=== PATIENT | male | born 1960 | race Two or more races ===

== ENCOUNTER 2024-05-12 09:34 | Inpatient (IN) | payer MEDICARE, MEDICAID ==
[~2024-05-12] VITALS: Ht 162.6 cm; Wt 61.4 kg
[2024-05-12] MEDS: SODIUM CHLORIDE 0.9% 1000ML BAG (SEPSIS BOLUS) IV NR (10:22)
[2024-05-12] MEDS: PIPERACILLIN/TAZO 3.375G/50ML 50 ML IV NR (10:22)
[2024-05-12] MEDS: VANCOMYCIN 1G PREMIX 200 ML IV NR (10:22)
[2024-05-12 10:23] LABS: HEMATOCRIT. 24.5 % (42.0-52.0); HEMOGLOBIN. 7.9 g/dL (14.0-18.0); MEAN CORPUSCULAR HEMOGLOBIN 31.5 pg (28.0-32.0); MEAN CORPUSCULAR HGB CONC 32.3 g/dL (31.0-37.0); MEAN CORPUSCULAR VOLUME 97.4 fL (80.0-94.0); MEAN PLATELET VOLUME 7.5 fl (7.4-10.4); PLATELET 161 x1000/uL (130-400); RED BLOOD CELL COUNT 2.51 mill/uL (4.7-6.1); WHITE BLOOD COUNT 2.6 x1000/uL (4.5-11.0)
[2024-05-12 10:30] LABS: POTASSIUM 3.5 mEq/L (3.5-5.1)
[2024-05-12 10:31] LABS: CALCIUM 8.2 mg/dL (8.7-10.4)
[2024-05-12 10:36] LABS: CREATININE 4.8 mg/dL (0.6-1.3)
[2024-05-12 10:38] LABS: LACTIC ACID 2.6 mmol/L (0.4-2.0)
[2024-05-12 10:43] LABS: INR 0.9; PROTHROMBIN TIME 10.1 sec (9.6-11.0)
[2024-05-12 10:48] LABS: DIFFERENTIAL COMMENT 1
[2024-05-12] MEDS ORDERED: DOCUSATE SODIUM 100MG CAPSULE PO PRN (15:30)
[2024-05-12] MEDS ORDERED: ONDANSETRON HCL 4MG/2ML INJ IV PRN (15:30)
[2024-05-12] MEDS ORDERED: ENOXAPARIN 40MG/0.4ML SYR SUBCUT SCH (15:30)
[2024-05-12] MEDS ORDERED: MAGNESIUM/ALUMINUM HYDROXIDE/SIMETHICONE 30ML UDC PO PRN (15:30)
[2024-05-12] MEDS ORDERED: NITROGLYCERIN 0.4MG TABLET SL SL PRN (15:30)
[2024-05-12] MEDS ORDERED: NOREPINEPHRINE 8 MG in DEXT 5% WATER 242 ML IV PRN (16:00)
[2024-05-12 16:04] LABS: ANISOCYTOSIS 3+; PLATELET ESTIMATE NORMAL
[2024-05-12] MEDS ORDERED: NOREPINEPHRINE 8MG/250ML PMX 250ML IV PRN (16:15)
[2024-05-12] MEDS: ENOXAPARIN 30MG/0.3ML SYR SUBCUT SCH (16:36)
[2024-05-12] MEDS: PANTOPRAZOLE SODIUM 40 MG/VIAL IV SCH (16:38)
[2024-05-12 17:11] LABS: IRON 21 ug/dL (65-175)
[2024-05-12 17:14] LABS: TOTAL IRON BINDING CAPACITY 281 ug/dl (250-425)
[2024-05-12 17:17] LABS: VITAMIN B12 SERUM 1074 pg/mL (211-911)
[2024-05-12 17:18] LABS: T4 FREE 0.89 ng/dL (0.89-1.76); THYROID STIMULATING HORMONE 1.03 uIU/mL (0.55-4.78)
[2024-05-12 17:24] LABS: FOLIC ACID (FOLATE) SERUM > 20.00 ng/mL (>5.38)
[2024-05-12] MEDS: MEROPENEM 500MG/50ML IV SCH (17:28)
[2024-05-12] MEDS: VANCOMYCIN 1.5GM/250ML IV NR (17:38)
[2024-05-12] MEDS: ASCORBIC ACID 500 MG TABLET PO SCH (21:00)
[2024-05-12] MEDS: ACETAMINOPHEN 325MG TABLET PO PRN (21:15)
[2024-05-12 21:35] VITALS: PULSE 129; RESP 32; O2SAT 98
[2024-05-12] MEDS: IPRATROPIUM/ALBUTEROL 0.5-3(2.5)MG/3ML NEB NEB PRN (21:35)
[2024-05-12] MEDS ORDERED: MEROPENEM 1G/100ML 100 ML IV SCH (22:00)
[2024-05-12 23:51] LABS: CREATINE KINASE MB FRACTION 1.5 ng/mL (0.5-3.6)
[2024-05-12 23:52] LABS: TROPONIN I HIGH SENSITIVITY 29 ng/L (3.0-53)
[2024-05-12 23:53] LABS: CREATINE KINASE 30 IU/L (46-171)
[2024-05-13] VITALS (11 sets, daily range): BP systolic 124–171; BP diastolic 75–86; PULSE 74–99; RESP 16–24; TEMP 98–98.7; O2SAT 99
[2024-05-13 06:07] LABS: CHLORIDE 105 mEq/L (98-107); POTASSIUM 4.3 mEq/L (3.5-5.1); SODIUM 139 mEq/L (136-145)
[2024-05-13 06:08] LABS: CALCIUM 8.4 mg/dL (8.7-10.4); CARBON DIOXIDE 22 mEq/L (21-32)
[2024-05-13 06:10] LABS: CREATINE KINASE MB FRACTION 1.5 ng/mL (0.5-3.6); TROPONIN I HIGH SENSITIVITY 42 ng/L (3.0-53)
[2024-05-13 06:13] LABS: GLUCOSE 110 mg/dL (70-105); TRIGLYCERIDE 300 mg/dL (0-150); UREA NITROGEN BLOOD 47 mg/dL (9-23)
[2024-05-13 06:14] LABS: ALANINE AMINOTRANSFERASE 39 IU/L (10-49); LDL CHOLESTEROL 69 mg/dL (5-100)
[2024-05-13 06:15] LABS: ALBUMIN 3.3 g/dL (3.2-4.8); ASPARTATE AMINOTRANSFERASE 25 IU/L (<34); BILIRUBIN TOTAL 0.2 mg/dL (0.1-1.0); CHOLESTEROL 156 mg/dL (<200); CREATINE KINASE 25 IU/L (46-171); HDL CHOLESTEROL 33 mg/dL (>55); PHOSPHORUS 4.2 mg/dL (2.5-4.9); PROTEIN TOTAL 5.6 g/dL (6.0-8.3)
[2024-05-13 06:18] LABS: CREATININE 6.6 mg/dL (0.6-1.3)
[2024-05-13 06:30] LABS: HEMATOCRIT. 24.2 % (42.0-52.0); HEMOGLOBIN. 7.6 g/dL (14.0-18.0); MEAN CORPUSCULAR HEMOGLOBIN 30.7 pg (28.0-32.0); MEAN CORPUSCULAR HGB CONC 31.5 g/dL (31.0-37.0); MEAN CORPUSCULAR VOLUME 97.5 fL (80.0-94.0); PLATELET 158 x1000/uL (130-400); RED BLOOD CELL COUNT 2.48 mill/uL (4.7-6.1); WHITE BLOOD COUNT 2.6 x1000/uL (4.5-11.0)
[2024-05-13 07:04] LABS: DIFFERENTIAL COMMENT 1
[2024-05-13] MEDS: FOLIC ACID/VITAMIN B COMP W-C TABLET PO SCH (09:40)
[2024-05-13] MEDS: ZINC SULFATE 220 MG ( 50 ) CAPSULE PO SCH (09:40)
[2024-05-13] MEDS: CALCIUM ACETATE 667MG CAPSULE PO SCH (12:48)
[2024-05-13 13:36] LABS: HEPATITIS B SURFACE ANTIGEN NEGATIVE (Negative)
[2024-05-13 13:56] LABS: HEPATITIS A AB IGM NEGATIVE (Negative)
[2024-05-13 13:57] LABS: HEPATITIS B CORE AB IGM NEGATIVE (Negative); HEPATITIS C AB NON REACTIVE (Neg) (Negative)
[2024-05-13 16:51] LABS: ANISOCYTOSIS 3+; PLATELET ESTIMATE NORMAL
[2024-05-13] MEDS ORDERED: [UNRECOGNIZED DRUG - REMARK] XX SCH (17:45)
[2024-05-13] MEDS: METHYLPREDNISOLONE SOD SUCC 40MG/ML (ACT-O-VIAL) IV SCH (18:06)
[2024-05-14] VITALS: BP 115/76; PULSE 94; RESP 21; TEMP 98.5
[2024-05-14] MEDS: SULFAMETHOXAZOLE/TRIMETHOPRIM 400/80MG TAB PO SCH (00:04)
[2024-05-14] MEDS: MICAFUNGIN IV SCH (00:05)
[2024-05-14] MEDS: GUAIFENESIN 200MG/10ML SUGAR FREE UDC PO PRN (00:05)
[2024-05-14] MEDS: SODIUM CHLORIDE 0.9% IV SCH (00:05)
[2024-05-14] MEDS: ACETAMINOPHEN 325MG TABLET PO PRN (00:22)
[2024-05-14] MEDS ORDERED: [UNRECOGNIZED DRUG - CODE] (01:16)
[2024-05-14] MEDS ORDERED: CALC667T6 MT (01:16)
[2024-05-14] MEDS ORDERED: CETI-89 PO (01:16)
[2024-05-14] MEDS ORDERED: CHOL100034 (01:16)
[2024-05-14] MEDS ORDERED: FOLI0.8T23 MT (01:16)
[2024-05-14] MEDS ORDERED: PANT40TA51 PO (01:16)
[2024-05-14] MEDS ORDERED: VALC450 PO (01:16)
[2024-05-14] MEDS ORDERED: AMLO5TAB4 PO (01:16)
[2024-05-14] MEDS ORDERED: PRED10TA23 PO (01:16)
[2024-05-14] MEDS ORDERED: DICL100G58 TP (01:16)
[2024-05-14] MEDS ORDERED: CALC-586 PO (01:16)
[2024-05-14] MEDS ORDERED: SULF-292 PO (01:16)
[2024-05-14] MEDS ORDERED: HYDR-459 PO (01:17)
[2024-05-14] MEDS ORDERED: GUAI600T26 PO (01:17)
[2024-05-14] MEDS ORDERED: DIPH35CR TP (01:17)
[2024-05-14] MEDS ORDERED: ISAV186C2 PO (01:17)
[2024-05-14] MEDS: AMIKACIN 500MG in SODIUM CHLORIDE 0.9% 100ML IV SCH (01:26)
[2024-05-14] MEDS: ZOLPIDEM TARTRATE 5MG TABLET PO PRN (03:12)
[2024-05-14 04:00] VITALS: BP 139/83; PULSE 81; RESP 22; TEMP 98.5
[2024-05-14] MEDS ORDERED: LIDOCAINE HCL 1% 10 MG/ML 10ML VIAL ONE (09:54)
[2024-05-14 12:00] VITALS: BP 135/76; PULSE 79; RESP 25; TEMP 98.5
[2024-05-14] MEDS ORDERED: CRESEMBA 186 MG PO SCH (12:00)
[2024-05-14 12:39] LABS: HEMATOCRIT. 26.9 % (42.0-52.0); HEMOGLOBIN. 9.1 g/dL (14.0-18.0); MEAN CORPUSCULAR HEMOGLOBIN 32.3 pg (28.0-32.0); MEAN CORPUSCULAR HGB CONC 33.8 g/dL (31.0-37.0); MEAN CORPUSCULAR VOLUME 95.5 fL (80.0-94.0); RED BLOOD CELL COUNT 2.82 mill/uL (4.7-6.1); RED CELL DISTRIBUTION WIDTH 22.1 % (11.6-14.6)
[2024-05-14 12:44] LABS: DIFFERENTIAL COMMENT 1
[2024-05-14 12:50] LABS: POTASSIUM 4.6 mEq/L (3.5-5.1)
[2024-05-14 14:03] LABS: CREATININE 6.3 mg/dL (0.6-1.3)
[2024-05-14 15:14] LABS: ANISOCYTOSIS 3+; PLATELET ESTIMATE NORMAL
[2024-05-14 16:00] VITALS: BP 142/82; PULSE 83; RESP 20; TEMP 98.1
[2024-05-14 20:00] VITALS: BP 148/80; PULSE 83; RESP 22; TEMP 98.1
[2024-05-15] VITALS: BP 143/82; PULSE 79; RESP 22; TEMP 98.5
[2024-05-15 04:00] VITALS: BP 150/81; PULSE 82; RESP 17; TEMP 98.7
[2024-05-15 06:36] LABS: POTASSIUM 4.7 mEq/L (3.5-5.1)
[2024-05-15 06:37] LABS: CALCIUM 9.3 mg/dL (8.7-10.4)
[2024-05-15 06:45] LABS: HEMATOCRIT. 25.7 % (42.0-52.0); HEMOGLOBIN. 8.4 g/dL (14.0-18.0); MEAN CORPUSCULAR HEMOGLOBIN 31.5 pg (28.0-32.0); MEAN CORPUSCULAR HGB CONC 32.7 g/dL (31.0-37.0); MEAN CORPUSCULAR VOLUME 96.3 fL (80.0-94.0); MEAN PLATELET VOLUME 8.7 fl (7.4-10.4); PLATELET 157 x1000/uL (130-400); RED BLOOD CELL COUNT 2.67 mill/uL (4.7-6.1); RED CELL DISTRIBUTION WIDTH 22.3 % (11.6-14.6); WHITE BLOOD COUNT 3.8 x1000/uL (4.5-11.0)
[2024-05-15 07:02] LABS: DIFFERENTIAL COMMENT 1
[2024-05-15 08:00] VITALS: BP 150/81; PULSE 80; RESP 17; TEMP 98.3
[2024-05-15 08:04] LABS: CREATININE 7.8 mg/dL (0.6-1.3)
[2024-05-15] MEDS: CRESEMBA 186 MG PO SCH (09:09)
[2024-05-15 12:00] VITALS: BP 145/75; PULSE 83; RESP 20; TEMP 98.7
[2024-05-15 16:00] VITALS: BP 131/84; PULSE 76; RESP 20; TEMP 97.8
[2024-05-15 20:00] VITALS: BP 156/90; PULSE 78; RESP 18; TEMP 98
[2024-05-15 20:16] LABS: PLATELET ESTIMATE NORMAL
[2024-05-16] VITALS (10 sets, daily range): BP systolic 124–160; BP diastolic 78–113; PULSE 72–98; RESP 17–21; TEMP 97.3–98.2
[2024-05-16 06:41] LABS: HEMOGLOBIN. 8.2 g/dL (14.0-18.0); MEAN CORPUSCULAR HEMOGLOBIN 31.5 pg (28.0-32.0); MEAN CORPUSCULAR HGB CONC 32.6 g/dL (31.0-37.0); MEAN CORPUSCULAR VOLUME 96.6 fL (80.0-94.0); MEAN PLATELET VOLUME 8.6 fl (7.4-10.4); PLATELET 169 x1000/uL (130-400); RED BLOOD CELL COUNT 2.59 mill/uL (4.7-6.1); RED CELL DISTRIBUTION WIDTH 21.8 % (11.6-14.6); WHITE BLOOD COUNT 3.8 x1000/uL (4.5-11.0)
[2024-05-16 06:46] LABS: POTASSIUM 5.2 mEq/L (3.5-5.1)
[2024-05-16 06:47] LABS: CALCIUM 8.7 mg/dL (8.7-10.4)
[2024-05-16 06:54] LABS: CREATININE 9.5 mg/dL (0.6-1.3)
[2024-05-16 07:29] LABS: DIFFERENTIAL COMMENT 1
[2024-05-16 15:00] LABS: ANISOCYTOSIS 2+; PLATELET ESTIMATE NORMAL
[2024-05-17] VITALS (7 sets, daily range): BP systolic 126–169; BP diastolic 67–102; PULSE 66–89; RESP 13–29; TEMP 97.8–98.4
[2024-05-17] MEDS: CLONIDINE 0.1MG TABLET PO PRN (00:26)
[2024-05-17] MEDS: PREDNISONE 20MG TABLET PO SCH (07:51)
[2024-05-17] MEDS: FAMOTIDINE 20MG/2ML VIAL IV SCH (08:29)
[2024-05-17 12:21] LABS: POTASSIUM 4.5 mEq/L (3.5-5.1)
[2024-05-17 12:23] LABS: CALCIUM 8.7 mg/dL (8.7-10.4)
[2024-05-17 12:39] LABS: HEMOGLOBIN. 8.4 g/dL (14.0-18.0); MEAN CORPUSCULAR HEMOGLOBIN 30.9 pg (28.0-32.0); MEAN CORPUSCULAR HGB CONC 32.3 g/dL (31.0-37.0); MEAN CORPUSCULAR VOLUME 95.6 fL (80.0-94.0); MEAN PLATELET VOLUME 8.4 fl (7.4-10.4); PLATELET 183 x1000/uL (130-400); RED BLOOD CELL COUNT 2.73 mill/uL (4.7-6.1); RED CELL DISTRIBUTION WIDTH 21.8 % (11.6-14.6); WHITE BLOOD COUNT 5.8 x1000/uL (4.5-11.0)
[2024-05-17 12:43] LABS: CREATININE 7.9 mg/dL (0.6-1.3); DIFFERENTIAL COMMENT 1
[2024-05-17] MEDS: MEROPENEM 500MG/50ML IV SCH (16:53)
[2024-05-17 17:29] LABS: ANISOCYTOSIS 2+; PLATELET ESTIMATE NORMAL
[2024-05-18] VITALS (15 sets, daily range): BP systolic 106–162; BP diastolic 68–96; PULSE 70–94; RESP 15–25; TEMP 97.3–98.1
[2024-05-18 07:35] LABS: POTASSIUM 4.8 mEq/L (3.5-5.1)
[2024-05-18 07:37] LABS: CALCIUM 8.6 mg/dL (8.7-10.4)
[2024-05-18 07:39] LABS: HEMATOCRIT. 29.8 % (42.0-52.0); HEMOGLOBIN. 9.4 g/dL (14.0-18.0); MEAN CORPUSCULAR HGB CONC 31.5 g/dL (31.0-37.0); MEAN CORPUSCULAR VOLUME 98.2 fL (80.0-94.0); PLATELET 235 x1000/uL (130-400); RED BLOOD CELL COUNT 3.04 mill/uL (4.7-6.1); RED CELL DISTRIBUTION WIDTH 21.9 % (11.6-14.6); WHITE BLOOD COUNT 9.5 x1000/uL (4.5-11.0)
[2024-05-18 07:49] LABS: CREATININE 8.9 mg/dL (0.6-1.3)
[2024-05-18] MEDS ORDERED: REGADENOSON 0.4 MG/5 ML IV ONE (07:52)
[2024-05-18 08:07] LABS: DIFFERENTIAL COMMENT 1
[2024-05-18] MEDS ORDERED: LIDOCAINE HCL 1% 10 MG/ML 10ML VIAL ONE (12:53)
[2024-05-18 16:29] LABS: PLATELET ESTIMATE NORMAL
[2024-05-19] VITALS: BP 155/84; PULSE 84; RESP 22; TEMP 97.8
[2024-05-19 04:00] VITALS: PULSE 71; RESP 14
[2024-05-19 08:00] VITALS: BP 158/98; PULSE 82; RESP 29; TEMP 97.6
[2024-05-19 12:00] VITALS: BP 170/108; PULSE 85; RESP 28; TEMP 98.5
[2024-05-19 16:00] VITALS: BP 158/95; PULSE 72; RESP 21; TEMP 97.9
[2024-05-19 20:00] VITALS: BP 168/82; PULSE 73; RESP 16; TEMP 97.5
[2024-05-20] VITALS (7 sets, daily range): BP systolic 124–195; BP diastolic 67–100; PULSE 69–85; RESP 14–26; TEMP 97.6–98.4
[2024-05-20] MEDS: SULFAMETHOXAZOLE/TRIMETHOPRIM 400/80MG TAB PO SCH (08:43)
[2024-05-20 11:01] LABS: POTASSIUM 4.1 mEq/L (3.5-5.1)
[2024-05-20 11:02] LABS: CALCIUM 8.3 mg/dL (8.7-10.4)
[2024-05-20 11:05] LABS: HEMATOCRIT. 24.2 % (42.0-52.0); HEMOGLOBIN. 7.8 g/dL (14.0-18.0); MEAN CORPUSCULAR HEMOGLOBIN 30.9 pg (28.0-32.0); MEAN CORPUSCULAR HGB CONC 32.4 g/dL (31.0-37.0); MEAN CORPUSCULAR VOLUME 95.4 fL (80.0-94.0); MEAN PLATELET VOLUME 8.4 fl (7.4-10.4); PLATELET 297 x1000/uL (130-400); RED BLOOD CELL COUNT 2.54 mill/uL (4.7-6.1); RED CELL DISTRIBUTION WIDTH 21.7 % (11.6-14.6); WHITE BLOOD COUNT 9.5 x1000/uL (4.5-11.0)
[2024-05-20 11:35] LABS: DIFFERENTIAL COMMENT 1
[2024-05-20 16:47] LABS: ANISOCYTOSIS 3+; PLATELET ESTIMATE NORMAL
== END 2024-05-20 18:50 | disposition home or self-care (01) | DRG 871 ==
LOC: ER 09:34 → 5WST 11:38 → EDBEDREQTM 11:42 → EDBEDREQ 11:42 → 3WST 05-13 22:17
PROVIDERS: ADMIT Internal Medicine; ATTEND Internal Medicine
PROC: 5A1D70Z Performance of Urinary Filtration, Intermittent, Less than 6 Hours Per Day (ICD-10-PCS; principal; 2024-05-13)
PROC: 0JPT3XZ Removal of Tunneled Vascular Access Device from Trunk Subcutaneous Tissue and Fascia, Percutaneous Approach (ICD-10-PCS; 2024-05-14)
PROC: 5A1D70Z Performance of Urinary Filtration, Intermittent, Less than 6 Hours Per Day (ICD-10-PCS; 2024-05-16)
PROC: 5A1D70Z Performance of Urinary Filtration, Intermittent, Less than 6 Hours Per Day (ICD-10-PCS; 2024-05-18)
PROC: 02H633Z Insertion of Infusion Device into Right Atrium, Percutaneous Approach (ICD-10-PCS; 2024-05-18)
PROC: B5181ZA Fluoroscopy of Superior Vena Cava using Low Osmolar Contrast, Guidance (ICD-10-PCS; 2024-05-18)
PROC: B548ZZA Ultrasonography of Superior Vena Cava, Guidance (ICD-10-PCS; 2024-05-18)
PROC: 5A1D70Z Performance of Urinary Filtration, Intermittent, Less than 6 Hours Per Day (ICD-10-PCS; 2024-05-20)
DX: A41.59 Other Gram-negative sepsis (principal); B25.0 Cytomegaloviral pneumonitis; N18.6 End stage renal disease; R65.21 Severe sepsis with septic shock; E87.1 Hypo-osmolality and hyponatremia; I12.0 Hypertensive chronic kidney disease with stage 5 chronic kidney disease or end stage renal disease; D61.818 Other pancytopenia; J96.10 Chronic respiratory failure, unspecified whether with hypoxia or hypercapnia; D63.1 Anemia in chronic kidney disease; E83.51 Hypocalcemia; Z99.2 Dependence on renal dialysis; Z79.899 Other long term (current) drug therapy
CPT/HCPCS: 36415; 36573; 36589; 71045; 80048; 80053; 80061; 80202; 82550; 82553; 82607; 82746; 83036; 83540; 83550; 83605; 83735; 84100; 84145; 84439; 84443; 84484; 85025; 86705; 86709; 87070; 87077; 87186; 87340; 90935; 93005; 93306; 93970; 94640; 99291; C1725; C9113; J0278; J1650; J2185; J2248; J2470; J2543; J2785; J2920; J3370; J3490; J7050; J7512